=== PATIENT | male | born 1940 | race Caucasian/White ===

== ENCOUNTER 2020-05-23 18:33 | Emergency (ER) | payer MEDICARE ==
[~2020-05-23] VITALS: Ht 165.1 cm; Wt 114.7 kg
--- NOTE | 2020-05-23 18:45 | PHYS DOC ---
Past History Past Medical History: Arthritis, Other Past Surgical History: Angioplasty Past Surgical History Stents General Adult EDM: Chief Complaint: MECHANICAL FALL HPI: HPI: "..I fell out of the trailer..". " I caught my foot on the step.. as I was trying to remove my shoes.. I scraped my self up pretty good.. Maybe I broke something..." Patient is a 79 year old male who presents with above hx and complaints slip and fall resulting in multiple contusions and abrasions to both arms. Patient localizes pain primarily in right hand and right hip. Patient is right-hand dominant. Has obvious significant degenerative joint changes of both hands. Patient has history of previous fractures in right hand. Patient has been walking but complains of pain in the right hip. Patient denies any other injury at this time. Patient reportedly up-to-date with his tetanus. Patient normally follows with Dr. Pimentel. 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 Patient denies any history of fever or chills. No recent travel outside the [place] area. No specific ill contacts. Does have longstanding gait instability and arthritis. Review of Systems: Review of Systems: Constitutional: Denies fever or chills Eyes: Denies change in visual acuity HENT: Denies nasal congestion or sore throat Respiratory: Denies cough or shortness of breath Cardiovascular: Denies chest pain or edema GI: Denies abdominal pain, nausea, vomiting, bloody stools or diarrhea : Denies dysuria Musculoskeletal: Complains of right hand and right hip pain Integument: Complains of multiple contusions and abrasions Neurologic: Denies headache, focal weakness or sensory changes Endocrine: Denies polyuria or polydipsia Lymphatic: Denies swollen glands Psychiatric: Denies depression or anxiety Heart Score: Risk Factors: Risk Factors: DM, Current or recent (<one month) smoker, HTN, HLP, family history of CAD, obesity. Risk Scores: Score 0 - 3: 2.5% MACE over next 6 weeks - Discharge Home Score 4 - 6: 20.3% MACE over next 6 weeks - Admit for Clinical Observation Score 7 - 10: 72.7% MACE over next 6 weeks - Early Invasive Strategies Family History: Family History: Noncontributory to presentation Current Medications: Current Meds: See nursing for home meds Allergies: Allergies: Allergies Coded Allergies Type Severity Reaction Last Updated Verified No Known Drug Allergies 05/23/20 No Physical Exam: PE: Constitutional: moderate acute distress, non-toxic appearance. [] HENT: Normocephalic, atraumatic, bilateral external ears normal, oropharynx moist, no oral exudates, nose normal. [] Eyes: PERRLA, EOMI, conjunctiva normal, no discharge. [] Neck: Normal range of motion, no tenderness, supple, no stridor. [] Cardiovascular:Heart rate regular rhythm, no murmur [] PMI to the left. Old surgery scar Lungs & Thorax: Bilateral breath sounds equal at apex with some basilar wheezes on auscultation [] Abdomen: Bowel sounds normal, soft, no tenderness, no masses, no pulsatile masses. [] Skin: Warm, dry, no erythema, no rash. Multiple areas of skin abrasions and contusions to both arms Back: No tenderness, no CVA tenderness. [] Extremities: Right hand and right hip tenderness, no cyanosis, no clubbing, ROM intact, no edema. Marked arthritic changes of hands bilaterally Neurologic: Alert and oriented X 3, moves all extremities on request, does have distal sensory, no focal deficits noted. [] Psychologic: Affect anxious, judgement normal, mood normal. [] EKG: EKG: [] Radiology/Procedures: Radiology/Procedures: [][place] [address] IMAGING REPORT Signed PATIENT: GILBERT DIAZ ACCOUNT: [id number] : 1940 LOCATION: ER AGE: 79 SEX: M EXAM STATUS: REG ER ORD. PHYSICIAN: RIGOBERTO CHAN MD REASON: fall on steps PROCEDURE: HAND RIGHT 3V PROCEDURE: HAND RIGHT 3V, HIP RIGHT 2V WITH PELVIS STUDY DATE: 05/23/2020 CLINICAL INDICATION / HISTORY: Reason: fall on steps / Spl. Instructions: / History: . TECHNIQUE: PA, lateral and oblique views of the right hand. COMPARISON: None FINDINGS: Old boxer's fracture's of the fourth and fifth metacarpals. [place]-neck deformity to the alignment of the digits in a pattern suggesting long-standing inflammatory arthropathy such as rheumatoid arthritis. No acute fracture or aggressive appearing osseous lesions. IMPRESSION: No acute osseous abnormality. PROCEDURE: HAND RIGHT 3V, HIP RIGHT 2V WITH PELVIS STUDY DATE: 05/23/2020 CLINICAL INDICATION / HISTORY: Reason: fall on steps / Spl. Instructions: / History: . TECHNIQUE: Three views of the right hip were obtained. COMPARISON: None FINDINGS: The osseous structures are normally mineralized. There is normal bony alignment present with the femoral heads well-seated within the acetabuli. There is no evidence of acute fracture or dislocation identified. There is sclerosis along the right sacroiliac joint. Soft tissues show partially imaged aortobiiliac stent grafts and findings suggesting internal iliac embolic material. IMPRESSION: No acute pathology in the pelvis or right hip. Findings suggesting sequelae of sacroiliitis on the right. Electronically signed by: Wendi Cordova MD (05/23/2020 10:44 PM) [facility] [place]ATED AND SIGNED BY: WENDI CORDOVA MD DATE: 05/23/20 [id number] CC: RIGOBERTO CHAN MD; KALYAN PIMENETL MD ~ Course & Med Decision Making: Course & Med Decision Making Pertinent Labs and Imaging studies reviewed. (See chart for details) Abrasions cleaned with soap and water. Application of antibiotic ointment. Patient to continued treatment with Polysporin 4 times a day and monitor for infection. Take [id number] Tylenol and ibuprofen for pain. For marked pain may take Vicoprofen. Use ice packs as needed. Return if any concerns. Follow-up primary care. Impression: 1. Fall- Trip 2. Contusions 3. Abrasions [] Dragon Disclaimer: Dragjillian Disclaimer: This electronic medical record was generated, in whole or in part, using a voice recognition dictation system. Departure Departure: Disposition: 01 HOME/RESIDENCE PRIOR TO ADM Condition: STABLE Referrals: KALYAN PIMENTEL MD (PCP) Scripts Bacitracin/Polymyxin B Sulfate (POLYSPORIN OINTMENT) 28.3 Gm Oint...g. 28.3 GM TP QID for abrasions, #120 [facility] Prov: RIGOBERTO CHAN MD 05/23/20 Hydrocodone/Ibuprofen (HYDROCODONE-IBUPROFEN 7.5-200 ) 1 Each Tablet 1 TAB PO PRN Q6HRS PRN for PAIN, #30 TAB 0 Refills Prov: RIGOBERTO CHAN MD 05/23/20 Chaz Disclaimer This chart was dictated in whole or in part using Voice Recognition software in a busy, high-work load, and often noisy Emergency Department environment. It may contain unintended and wholly unrecognized errors or omissions. RIGOBERTO CHAN MD May 23, 2020 18:45
[2020-05-23] MEDS ORDERED: HYDROcodon/IBUPROFEN 7.5/200MG 1 TAB TABLET PO ONE (20:30)
[2020-05-23] MEDS ORDERED: BACITRACIN ZINC TOPICAL OINT PACKET. TP ONE (20:30)
[2020-05-23] MEDS ORDERED: HYDR-1179 PO (22:37)
[2020-05-23] MEDS ORDERED: BACI28.34 TP (22:37)
--- NOTE | 2020-05-23 22:47 | RAD ---
PROCEDURE: HAND RIGHT 3V, HIP RIGHT 2V WITH PELVIS STUDY DATE: 05/23/2020 CLINICAL INDICATION / HISTORY: Reason: fall on steps / Spl. Instructions: / History: . TECHNIQUE: PA, lateral and oblique views of the right hand. COMPARISON: None FINDINGS: Old boxer's fracture's of the fourth and fifth metacarpals. [place]-neck deformity to the alignment of the digits in a pattern suggesting long-standing inflammatory arthropathy such as rheumatoid arthritis. No acute fracture or aggressive appearing osseous lesions. IMPRESSION: No acute osseous abnormality. PROCEDURE: HAND RIGHT 3V, HIP RIGHT 2V WITH PELVIS STUDY DATE: 05/23/2020 CLINICAL INDICATION / HISTORY: Reason: fall on steps / Spl. Instructions: / History: . TECHNIQUE: Three views of the right hip were obtained. COMPARISON: None FINDINGS: The osseous structures are normally mineralized. There is normal bony alignment present with the femoral heads well-seated within the acetabuli. There is no evidence of acute fracture or dislocation identified. There is sclerosis along the right sacroiliac joint. Soft tissues show partially imaged aortobiiliac stent grafts and findings suggesting internal iliac embolic material. IMPRESSION: No acute pathology in the pelvis or right hip. Findings suggesting sequelae of sacroiliitis on the right. Electronically signed by: Boogie Cordova MD (05/23/2020 10:44 PM) [facility] [place]
--- NOTE | 2020-05-23 22:48 | RAD ---
PROCEDURE: HAND RIGHT 3V, HIP RIGHT 2V WITH PELVIS STUDY DATE: 05/23/2020 CLINICAL INDICATION / HISTORY: Reason: fall on steps / Spl. Instructions: / History: . TECHNIQUE: PA, lateral and oblique views of the right hand. COMPARISON: None FINDINGS: Old boxer's fracture's of the fourth and fifth metacarpals. [place]-neck deformity to the alignment of the digits in a pattern suggesting long-standing inflammatory arthropathy such as rheumatoid arthritis. No acute fracture or aggressive appearing osseous lesions. IMPRESSION: No acute osseous abnormality. PROCEDURE: HAND RIGHT 3V, HIP RIGHT 2V WITH PELVIS STUDY DATE: 05/23/2020 CLINICAL INDICATION / HISTORY: Reason: fall on steps / Spl. Instructions: / History: . TECHNIQUE: Three views of the right hip were obtained. COMPARISON: None FINDINGS: The osseous structures are normally mineralized. There is normal bony alignment present with the femoral heads well-seated within the acetabuli. There is no evidence of acute fracture or dislocation identified. There is sclerosis along the right sacroiliac joint. Soft tissues show partially imaged aortobiiliac stent grafts and findings suggesting internal iliac embolic material. IMPRESSION: No acute pathology in the pelvis or right hip. Findings suggesting sequelae of sacroiliitis on the right. Electronically signed by: Boogie Cordova MD (05/23/2020 10:44 PM) [facility] [place]
[2020-05-23 22:50] VITALS: BP 137/79
== END 2020-05-23 23:00 | disposition home or self-care (01) ==
LOC: ER 18:33
DX: S40.022A Contusion of left upper arm, initial encounter (principal); S40.021A Contusion of right upper arm, initial encounter; M25.551 Pain in right hip; M19.90 Unspecified osteoarthritis, unspecified site; Z98.61 Coronary angioplasty status; W01.0XXA Fall on same level from slipping, tripping and stumbling without subsequent striking against object, initial encounter; Y93.89 Activity, other specified; Y92.89 Other specified places as the place of occurrence of the external cause; Y99.8 Other external cause status
CPT/HCPCS: 73130; 73502; 99284

== ENCOUNTER 2020-06-18 17:23 | Emergency (ER) | payer MEDICARE ==
[~2020-06-18] VITALS: Ht 165.1 cm; Wt 114.7 kg
[~2020-06-18 17:23] MED LIST: BACI28.34 TP; HYDR-1179 PO
[2020-06-18 17:29] VITALS: BP 126/66
--- NOTE | 2020-06-18 17:57 | PHYS DOC ---
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 Patient states he was standing up from sitting position, states hit head on the ground. Denies any loss of consciousness. He reports being on a blood thinner but he does not know the name. Denies any neck pain, mid back pain. He states he was able to get up and walk with no difficulty. Review of Systems Review of Systems Constitutional: Denies fever or chills [] Eyes: Denies change in visual acuity, redness, or eye pain [] HENT: Denies nasal congestion or sore throat [] Respiratory: Denies cough or shortness of breath [] Cardiovascular: No additional information not addressed in HPI [] GI: Denies abdominal pain, nausea, vomiting, bloody stools or diarrhea [] : Denies dysuria or hematuria [] Musculoskeletal: Denies back pain or joint pain [] Integument: Denies rash or skin lesions [] Neurologic: Reports falling and hitting his head on the ground denies, focal weakness or sensory changes [] All other systems were reviewed and found to be within normal limits, except as documented in this note. Allergies Allergies Allergies Coded Allergies Type Severity Reaction Last Updated Verified No Known Drug Allergies 05/23/20 No Physical Exam Physical Exam Constitutional: Well developed, well nourished, no acute distress, non-toxic appearance. [] HENT: Normocephalic, atraumatic, bilateral external ears normal, oropharynx moist, no oral exudates, nose normal. [] Eyes: PERRLA, EOMI, conjunctiva normal, no discharge. [] Neck: Normal range of motion, no tenderness, supple, no stridor. [] Cardiovascular:Heart rate regular rhythm, no murmur [] Lungs & Thorax: Bilateral breath sounds clear to auscultation [] Abdomen: Bowel sounds normal, soft, no tenderness, no masses, no pulsatile masses. [] Skin: Warm, dry, no erythema, no rash. [] Back: No tenderness, no CVA tenderness. [] Extremities: No tenderness, no cyanosis, no clubbing, ROM intact, no edema. [] Neurologic: Alert and oriented X 3, normal motor function, normal sensory function, no focal deficits noted. Cranial nerves II through XII, intact, small left forehead contusion noted Psychologic: Affect normal, judgement normal, mood normal. [] Current Patient Data Vital Signs Vital Signs Date Time Temp Pulse Resp B/P (MAP) Pulse Ox O2 Delivery O2 Flow Rate FiO2 06/18/20 17:29 97.8 104 16 126/66 (86) 93 Room Air EKG EKG [] Radiology/Procedures Radiology/Procedures []PROCEDURE: CT HEAD AND CERVICAL SPINE WO Exam: CT head and cervical spine without contrast INDICATION: Fall TECHNIQUE: Sequential axial images through the head and cervical spine were obtained without the administration of IV contrast. Comparisons: None FINDINGS: Head: No focal parenchymal lesion or hemorrhage is identified. There is no midline shift or sulcal effacement. Chronic appearing infarct at the right frontal lobe. Lacunar infarct in the right basal ganglia, likely chronic. Moderate patchy hypodensity in the periventricular white matter. No acute vascular territory infarction is identified. [place]-white distinction is preserved. The ventricular system is within normal limits without compression hydrocephalus. The basal cisterns are well maintained. The visualized portions of the paranasal sinuses and mastoid air cells are well-pneumatized. No acute fractures. Cervical spine: Vertebral body heights and alignment are well-maintained. Fracture to the cervical spine is not identified. 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 Mild diffuse bilateral facet arthropathy is also noted. Visualized paraspinal soft tissues are unremarkable. IMPRESSION: 1. No acute intracranial abnormality. 2. Negative CT C-spine for acute traumatic injury. Exposure: One or more of the following in the visualized dose reduction techniques were utilized for this examination: 1. Automated exposure control 2. Adjustment of the MA and/or KV according to patient size Use of iterative of reconstructive technique Electronically signed by: Paramjit Tidwell MD (06/18/2020 6:02 PM) [facility] DICTATED AND SIGNED BY: PARAMJIT TIDWELL MD DATE: 06/18/201801 CC: [facility]; KALYAN PIMENTEL MD; JUDE STOCK APRN ~ Heart Score Risk Factors: Risk Factors: DM, Current or recent (<one month) smoker, HTN, HLP, family history of CAD, obesity. Risk Scores: Risk Factors: DM, Current or recent (<one month) smoker, HTN, HLP, family hi story of CAD, obesity. Course & Med Decision Making Course & Med Decision Making Pertinent Labs and Imaging studies reviewed. (See chart for details) This is a 79-year-old male patient presented to the ED today to be evaluated status post falling. He hit his head on the ground, no loss of consciousness, he is on a blood thinner. CT of the head and cervical spine are negative for any acute findings. Patient was discharged back to home. Provided return precautions. Follow-up with PCP in the course of next week. You were evaluated in the emergency room after falling. Your CAT scan of the head and cervical spine are negative for any acute findings. Dragon Disclaimer Dragon Disclaimer This electronic medical record was generated, in whole or in part, using a voice recognition dictation system. Departure Departure: Impression: Primary Impression: Fall from standing Additional Impression: Closed head injury Disposition: 01 DC HOME SELF CARE/HOMELESS Condition: STABLE Referrals: KALYAN PIMENTEL MD (PCP) follow up with your doctor next week Patient Instructions: Fall Prevention and Home Safety, Head Injury, Adult, [id number] Additional Instructions: You were evaluated in the emergency room after falling, your CAT scan of the head and cervical spine/neck were negative for any acute findings. Follow-up with your doctor next week. Come back to the ED at any point symptoms worsen. Problem Qualifiers Primary Impression: Fall from standing Encounter type: initial encounter Qualified Codes: W19.XXXA - Unspecified fall, initial encounter Additional Impression: Closed head injury Encounter type: initial encounter Qualified Codes: S09.90XA - Unspecified injury of head, initial encounter [employer] Jun 18, 2020 17:57
--- NOTE | 2020-06-18 18:05 | RAD ---
Exam: CT head and cervical spine without contrast INDICATION: Fall TECHNIQUE: Sequential axial images through the head and cervical spine were obtained without the administration of IV contrast. Comparisons: None FINDINGS: Head: No focal parenchymal lesion or hemorrhage is identified. There is no midline shift or sulcal effacement. Chronic appearing infarct at the right frontal lobe. Lacunar infarct in the right basal ganglia, likely chronic. Moderate patchy hypodensity in the periventricular white matter. No acute vascular territory infarction is identified. [place]-white distinction is preserved. The ventricular system is within normal limits without compression hydrocephalus. The basal cisterns are well maintained. The visualized portions of the paranasal sinuses and mastoid air cells are well-pneumatized. No acute fractures. Cervical spine: Vertebral body heights and alignment are well-maintained. Fracture to the cervical spine is not identified. 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 Mild diffuse bilateral facet arthropathy is also noted. Visualized paraspinal soft tissues are unremarkable. IMPRESSION: 1. No acute intracranial abnormality. 2. Negative CT C-spine for acute traumatic injury. Exposure: One or more of the following in the visualized dose reduction techniques were utilized for this examination: 1. Automated exposure control 2. Adjustment of the MA and/or KV according to patient size Use of iterative of reconstructive technique Electronically signed by: Paramjit Muse MD (06/18/2020 6:02 PM) [facility]
== END 2020-06-18 18:20 | disposition home or self-care (01) ==
LOC: ER 17:23
DX: S00.83XA Contusion of other part of head, initial encounter (principal); M54.89 Other dorsalgia; M19.90 Unspecified osteoarthritis, unspecified site; I25.2 Old myocardial infarction; Z86.73 Personal history of transient ischemic attack (TIA), and cerebral infarction without residual deficits; Z98.61 Coronary angioplasty status; W18.39XA Other fall on same level, initial encounter; Y93.89 Activity, other specified; Y92.89 Other specified places as the place of occurrence of the external cause; Y99.8 Other external cause status
CPT/HCPCS: 70450; 72125; 99285-25